=== PATIENT | male | born 2000 | race Caucasian/White ===

== ENCOUNTER 2022-08-27 20:44 | Emergency (ER) | payer SELFPAY ==
[2022-08-27] MEDS ORDERED: Metoclopramide HCl 10 MG TAB ONE (22:01)
[2022-08-27] MEDS ORDERED: Ketorolac Tromethamine 30 MG/ML VIAL ONE (22:01)
== END 2022-08-27 22:50 | disposition home or self-care (01) ==
LOC: CSHERS 20:44
DX: R51.9 Headache, unspecified (principal); I10 Essential (primary) hypertension; F17.210 Nicotine dependence, cigarettes, uncomplicated
CPT/HCPCS: 96372; 99283; J1885